=== PATIENT | female | born 2005 | race Two or more races ===

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

== ENCOUNTER 2025-02-18 14:45 | Emergency (ER) | payer MEDICAID, OTHER ==
[~2025-02-18] VITALS: Ht 160 cm; Wt 44.5 kg
[2025-02-18 14:54] VITALS: BP 131/93; O2SAT 99
[2025-02-18 15:02] VITALS: TEMP 97.7
[2025-02-18] MEDS ORDERED: MORPHINE 2 MG/ML 1 ML VIAL IV PRN (17:15)
[2025-02-18] MEDS ORDERED: ONDANSETRON 4MG 2ML VIAL IV ONE (17:15)
[2025-02-18] MEDS ORDERED: KETOROLAC 30 MG/ML 1 ML VIAL IV ONE (17:20)
[2025-02-18 22:42] LABS: AMPHETAMINES LEVEL URINE NEGATIVE (NEGATIVE); BARBITURATES URINE NEGATIVE (NEGATIVE); BENZODIAZEPINES URINE NEGATIVE (NEGATIVE); CANNABINOIDS URINE NEGATIVE (NEGATIVE); COCAINE METABOLITE URINE NEGATIVE (NEGATIVE); METHADONE URINE NEGATIVE (NEGATIVE); OPIATES URINE NEGATIVE (NEGATIVE); PHENCYCLIDINE URINE NEGATIVE (NEGATIVE)
== END 2025-02-18 17:28 | disposition left against medical advice (07) ==
LOC: M ED 14:45
DX: S60.942A Unspecified superficial injury of right middle finger, initial encounter (principal); S60.944A Unspecified superficial injury of right ring finger, initial encounter; S60.946A Unspecified superficial injury of right little finger, initial encounter; Y92.9 Unspecified place or not applicable; Y93.9 Activity, unspecified; Y99.9 Unspecified external cause status; F17.290 Nicotine dependence, other tobacco product, uncomplicated; F12.10 Cannabis abuse, uncomplicated; Z53.9 Procedure and treatment not carried out, unspecified reason

== ENCOUNTER 2025-03-19 15:14 | Emergency (ER) | payer SELFPAY ==
[2025-03-19 15:18] VITALS: BP 147/72; TEMP 96.7; O2SAT 99
== END 2025-03-19 15:30 | disposition left against medical advice (07) ==
LOC: M ED 15:14
DX: Z53.21 Procedure and treatment not carried out due to patient leaving prior to being seen by health care provider (principal)